=== PATIENT | male | born 2005 | race Hispanic/Latino ===

== ENCOUNTER 2025-06-29 04:22 | Emergency (ER) | payer BC, SELFPAY ==
[2025-06-29 05:07] LABS: #Basophils 0.04 10x3/uL (0.0-0.2); #Eosinophils Less than 0.03 10x3/uL (0.0-0.7); #Monocytes 0.41 10x3/uL (0.11-0.59); #Neutrophils 8.21 10x3/uL (1.40-6.50); %Basophils 0.4 % (0.0-1.0); %Eosinophils 0.2 % (0.0-10.0); %Lymphocytes 15.0 % (28.0-48.0); %Monocytes 4.0 % (0.0-4.0); %Neutrophils 79.6 % (31.0-61.0); Hematocrit 46.3 % (42.0-52.0); Hemoglobin 15.1 g/dL (14.0-18.0); Mean Corpuscular Hemoglobin 27.9 pg (25.0-35.0); Mean Corpuscular Volume 85.6 fL (78.0-98.0); Platelet Count 302 10x3/uL (130-400); Red Blood Cell (RBC) Count 5.41 mill/uL (4.00-5.20); White Blood Cell (WBC) Count 10.31 10x3/uL (4.8-10.8)
[2025-06-29 05:20] LABS: ALT (SGPT) 38 U/L (Less than 45); AST (SGOT) 51 U/L (11-34); Albumin 4.7 g/dL (3.1-4.5); Alkaline Phosphatase 54 U/L (50-130); Anion Gap 17 mmol/L (10-20); BUN (Urea Nitrogen) 11 mg/dL (8.9-20.6); Bilirubin, Total 0.3 mg/dL (0.3-1.2); Calc. Creatinine Clearance 0 mL/min (70-130); Calcium 9.1 mg/dL (7.8-10.44); Carbon Dioxide 20 mmol/L (22-29); Chloride 106 mmol/L (98-107); Globulin 3.4 g/dL (2.4-3.5); Glucose 114 mg/dL (70-105); Potassium 3.7 mmol/L (3.5-5.1); Sodium 139 mmol/L (136-145)
[2025-06-29] MEDS ORDERED: Proparacaine 0.5% Opth 15 ML BOT ONE (05:56)
[2025-06-29] MEDS ORDERED: Fluorescein Opthalmic Strip ONE (05:56)
[2025-06-29] MEDS ORDERED: Amoxicillin/Potassium Clav 875 MG TAB ONE (07:15)
== END 2025-06-29 07:31 ==
LOC: ERS 04:22
DX: S02.841A Fracture of lateral orbital wall, right side, initial encounter for closed fracture (principal); W01.198A Fall on same level from slipping, tripping and stumbling with subsequent striking against other object, initial encounter
CPT/HCPCS: 70450; 70486; 71045; 72125; 80053; 84484; 85025; 93005; 94760; 96374; J2060